=== PATIENT | male | born 1990 | race Caucasian/White ===

== ENCOUNTER 2020-04-25 23:58 | Emergency (ER) | payer SELFPAY ==
[~2020-04-25] VITALS: Ht 188 cm; Wt 78.9 kg
[2020-04-26 00:11] VITALS: BP 116/82
--- NOTE | 2020-04-26 00:32 | NUR ---
29 Y/O M [place] LEONE[place] SPEAKING ONLY PRESENTS TO ED C/O GENERALIZED RASH ON THE FACE, SCALP AND TORSO X 2 DAYS AGO. RASH IS RED AND RAISED. PT STATES THE RASH APPEARED 2 DAYS AGO. PT ALSO C/O PAIN 8/10 ON HIS SCALP DUE TO ITCHINESS FROM THE RASH. RR EVEN AND UNLABORED. LUNG SOUDNS CLEAR UPON AUSCULTATION. BED IN LOWEST POSITION, SIDE RAIL UP X1. WILL CONTINUE TO MONITOR. ALLERGIES: DENIES MHX: DENIES
[2020-04-26 01:10] VITALS: BP 116/82
--- NOTE | 2020-04-26 01:10 | NUR ---
Patient discharged with v/s stable. Written and verbal after care instructions given and explained. Patient alert, oriented and verbalized understanding of instructions. Ambulatory with steady gait. All questions addressed prior to discharge. ID band removed. Patient advised to follow up with PMD. Rx of VALTREX given. Patient educated on indication of medication including possible reaction and side effects. Opportunity to ask questions provided and answered.
== END 2020-04-26 01:10 | disposition home or self-care (01) ==
LOC: EDSEX 23:58 → MED 23:58
DX: B01.9 Varicella without complication (principal)
CPT/HCPCS: 99283; Q0163; 99282

== ENCOUNTER 2022-10-31 02:59 | Emergency (ER) | payer SELFPAY ==
[~2022-10-31] VITALS: Ht 182.9 cm; Wt 91.6 kg
[2022-10-31 03:31] VITALS: BP 130/95
--- NOTE | 2022-10-31 03:35 | NUR ---
PT TO [facility]. COVID AND FLU COLLECTED
--- NOTE | 2022-10-31 05:06 | NUR ---
Patient discharged with v/s stable. Written and verbal after care instructions given and explained. Patient verbalized understanding. Ambulatory with steady gait. All questions addressed prior to discharge. Advised to follow up with PMD.
== END 2022-10-31 05:06 | disposition home or self-care (01) ==
LOC: MED 02:59
DX: B34.9 Viral infection, unspecified (principal); Z20.822 Contact with and (suspected) exposure to COVID-19; K12.0 Recurrent oral aphthae
CPT/HCPCS: 99283

== ENCOUNTER 2023-08-25 00:15 | Emergency (ER) | payer MEDICAID ==
[~2023-08-25] VITALS: Ht 182.9 cm; Wt 82.1 kg
[2023-08-25 00:43] VITALS: BP 131/92; PULSE 80; RESP 17; TEMP 97.3; O2SAT 100
[2023-08-25] MEDS ORDERED: DICYCLOMINE HCL LIQUID 20 MG, ALUMINUM HYD/MAG/SIMETHICONE 30 ML, LIDOCAINE VISCOUS 2% ... PO ONE ×3 (00:55)
[2023-08-25] MEDS ORDERED: ALUMINUM HYD/MAG/SIMETHICONE 30 ML UDC ONE (01:00)
[2023-08-25] MEDS ORDERED: DICYCLOMINE HCL LIQUID 10 MG/5 ML UDC ONE (01:01)
[2023-08-25 01:09] LABS: BASOPHILS % (AUTO) 0.6 % (0.0-2.0); EOSINOPHILS # (AUTO) 0.1 K/uL (0-0.4); EOSINOPHILS % (AUTO) 1.4 % (0.0-4.0); HEMATOCRIT 38.9 % (36-52); LYMPHOCYTES # (AUTO) 1.6 K/uL (2.0-11.5); LYMPHOCYTES % (AUTO) 25.5 % (20.5-51.1); MEAN CORPUSCULAR HEMOGLOBIN 30 pg (27-31); MEAN CORPUSCULAR HGB CONC 34 g/dL (33-37); MEAN CORPUSCULAR VOLUME 88.6 fL (80-94); MONOCYTES # (AUTO) 0.6 K/uL (0.8-1.0); MONOCYTES % (AUTO) 8.9 % (1.7-9.3); NEUTROPHILS % (AUTO) 63.6 % (42.2-75.2); PLATELET COUNT (AUTO) 331 K/uL (140-450); RED BLOOD CELL COUNT(AUTO) 4.39 MIL/uL (4.20-6.10); RED CELL DISTRIBUTION WIDTH 13.6 % (11.6-13.7); WHITE BLOOD COUNT (AUTO) 6.3 K/uL (4.8-10.8)
[2023-08-25 01:23] LABS: ALBUMIN 3.5 g/dL (3.4-5.0); ANION GAP 7.7 (8-16); CALCIUM 8.6 mg/dL (8.5-10.1); CARBON DIOXIDE 28.9 mmol/L (21-32); CREATININE 0.9 mg/dL (0.6-1.3); POTASSIUM 3.6 mmol/L (3.5-5.1); TOTAL BILIRUBIN 0.5 mg/dL (0.0-1.0); TOTAL PROTEIN, SERUM 6.6 g/dL (6.4-8.2)
[2023-08-25] MEDS ORDERED: ONDANSETRON 4 MG ODT PO ONE (01:55)
[2023-08-25] MEDS ORDERED: KETOROLAC 60 MG/2 ML VIAL IM ONE ×2 (01:55)
[2023-08-25] MEDS ORDERED: IBUP-2213 PO (02:45)
[2023-08-25] MEDS ORDERED: OMEP40EC23 PO (02:45)
[2023-08-25] MEDS ORDERED: ONDA8TAB87 PO (02:45)
== END 2023-08-25 02:34 | disposition home or self-care (01) ==
LOC: MED 00:15
DX: R10.13 Epigastric pain (principal); R11.0 Nausea; Z79.899 Other long term (current) drug therapy
CPT/HCPCS: 36415; 80053; 83690; 85025; 93005; 96372; 99284; J1885; Q0162